=== PATIENT | male | born 1955 | race Caucasian/White ===

== ENCOUNTER 2017-03-20 08:36 | Day surgery (SDC) | payer BC, SELFPAY ==
[2017-03-20] MEDS ORDERED: Sodium Chloride 0.9% 10 ML Syringe FLUSH PRN (08:45)
[2017-03-20] MEDS ORDERED: Lactated Ringers 1,000 ML IV SCH (10:05)
[2017-03-20] MEDS ORDERED: Lidocaine 1% 20 ML MDV INJECT ONE (10:30)
[2017-03-20] MEDS ORDERED: Propofol 200 MG/20 ML SDV IV ONE (10:30)
[2017-03-20 11:34] VITALS: BP 143/94
--- NOTE | 2017-03-20 19:20 | OR ---
DATE OF OPERATION: 03/20/2017 SURGEON: Yonatan Samson MD PREOPERATIVE DIAGNOSIS: Cataract, left eye. POSTOPERATIVE DIAGNOSIS: Cataract, left eye. OPERATION PERFORMED: Phacoemulsification of cataract left eye with placement of an Oseguera, model ZCB00, 20.0 diopter, foldable, posterior chamber intraocular lens. INSTANT PRINT OPERATOR: None. DESCRIPTION OF PROCEDURE: Peribulbar anesthetic was performed using a mixture of 2% lidocaine with Wydase. The patient was prepped and draped in the usual fashion. A 3 mm fornix based conjunctival flap was performed at the 10 o'clock position. Hemostasis was obtained using diathermy, and a 2.8 mm grooved near clear corneal incision was then made. A stab incision was made into the anterior chamber at the 12 o'clock position and a second stab wound incision was made underlying the grooved near clear corneal incision. Viscoat was instilled into the anterior chamber, and a continuous tear capsulotomy was performed. Hydrodissection was accomplished with balanced salt solution, and the nucleus was removed in a divide and conquer fashion. The remaining cortical material was removed with the irrigation and aspiration unit. Viscoat was instilled into the anterior chamber, and an Oseguera, model ZCB00, 20.0 diopter, foldable, posterior chamber intraocular lens was placed into the capsular bag, the haptics being positioned at the 1 and 7 o'clock positions. The residual Viscoat was removed from the anterior chamber and the anterior chamber reformed with balanced salt solution. The wound was checked and noted to be watertight. The conjunctiva was secured in its original position with diathermy. Alphagan and Maxitrol Ointment were then placed into the patient's eye. The patient tolerated the procedure well and it was without complication. Elapsed phacoemulsification time was 19 seconds. Postoperative instructions as related to activities as well as medications were reviewed with the patient. The patient was instructed to return to see me on the day following surgery for the first postoperative check. The patient was also instructed to contact me prior to that time if the patient were to have any problems. /[id number] DEG/MODL CC: BARRETT PACHECO PA-C MTDD
== END 2017-03-20 12:15 | disposition home or self-care (01) ==
LOC: FB.SDS 08:36
PROVIDERS: ATTEND Ophthalmology
DX: H26.9 Unspecified cataract (principal); I10 Essential (primary) hypertension; E03.9 Hypothyroidism, unspecified; Z79.82 Long term (current) use of aspirin; Z79.899 Other long term (current) drug therapy; Z88.8 Allergy status to other drugs, medicaments and biological substances; Z98.890 Other specified postprocedural states
CPT/HCPCS: 66984; A4217; C1780; J2704; J7120

== ENCOUNTER 2019-02-03 06:43 | Day surgery (SDC) | payer MEDICARE, OTHER ==
[2019-02-03] MEDS ORDERED: Lidocaine 1% PF 2 ML SDV INJECT ONE (06:44)
[2019-02-03] MEDS ORDERED: Propofol 200 MG/20 ML SDV IV ONE (06:44)
[2019-02-03] MEDS ORDERED: Sodium Chloride 0.9% 10 ML Syringe FLUSH PRN (06:45)
[2019-02-03] MEDS ORDERED: Lactated Ringers 1,000 ML IV SCH (06:45)
--- NOTE | 2019-02-03 08:14 | PCM.OPNOTE ---
- General Post-Op/Procedure Note Date of Surgery/Procedure: 02/03/19 Operative Procedure(s): c scope with bx Findings: polyp ascending and transverse colon Pre Op Diagnosis: screening Post-Op Diagnosis: polyp ascending and transverse colon Anesthesia Technique: MAC Primary Surgeon: Jose Tovar Anesthesia Provider: Nicolas Lr Pathology: polyp ascending and transverse colon Complications: None Condition: Good Free Text/Narrative:: see dictation
[2019-02-03 10:19] VITALS: BP 110/75; PULSE 75
--- NOTE | 2019-02-03 12:40 | OR ---
DATE OF OPERATION: 02/03/2019 SURGEON: Jose Tovar MD PROCEDURE PERFORMED: Colonoscopy, cold forceps biopsy. PREOPERATIVE DIAGNOSIS: Need for screening C scope. POSTOPERATIVE DIAGNOSIS: Polyp, ascending and transverse colon. INDICATIONS FOR PROCEDURE: This is a 63-year-old white male who presents for a screening colonoscopy. He was offered and accepted same. DESCRIPTION OF OPERATION: After an excellent IV sedation was administered, digital rectal exam was performed. The patient was noted to have a grade 4 hemorrhoid that was irritated by the bowel prep. The colonoscope was inserted and advanced to the cecum. The prep was excellent. The following findings were noted. Ascending colon, a small red patch consistent with an early adenoma, biopsied and sent for permanent. Transverse colon, small hyperplastic appearing polyps, biopsied and sent for permanent. Descending colon, unremarkable. Sigmoid, unremarkable. Rectum, unremarkable. Colon was deflated. Scope was removed. Results by letter. /[id number] /MONA
== END 2019-02-03 08:59 | disposition home or self-care (01) ==
LOC: FB.SDS 06:43
PROVIDERS: ATTEND Surgery
DX: Z12.11 Encounter for screening for malignant neoplasm of colon (principal); D12.3 Benign neoplasm of transverse colon; K64.3 Fourth degree hemorrhoids; K63.89 Other specified diseases of intestine; I10 Essential (primary) hypertension; E03.9 Hypothyroidism, unspecified; Z88.8 Allergy status to other drugs, medicaments and biological substances; Z79.82 Long term (current) use of aspirin; Z79.899 Other long term (current) drug therapy
CPT/HCPCS: 00812; 45380; J2001; J2704; J7120; 88305

== ENCOUNTER 2020-11-07 11:35 | Emergency (ER) | payer MEDICARE, OTHER ==
[2020-11-07] MEDS ORDERED: methylPREDNISolone Sodium Succinate 125 MG/2 ML SDV IM ONE (12:16)
[2020-11-07] MEDS ORDERED: Gabapentin 100 MG Cap PO ONE (12:17)
[2020-11-07] MEDS ORDERED: Ketorolac 60 MG/2 ML SDV IM ONE (12:20)
--- NOTE | 2020-11-07 13:09 | EDM.PDOC ---
ED HPI GENERAL MEDICAL PROBLEM - General Stated Complaint: LEFT SIDED JAW/TOOTH PAIN Time Seen by Provider: 11/07/20 11:40 Source of Information: Reports: Patient History Limitations: Reports: No Limitations - History of Present Illness INITIAL COMMENTS - FREE TEXT/NARRATIVE: c/o L face pain pt with L trigeminal neuralgia x 3y, was seen last week by Dr Moseley who put him on carbamazepine 200 mg 1 tab tid which he has been taken, pt says the pain on the outside is gone, still gets sharp pain on the inside which lasts for a few seconds went to urgent care who sent him here for IM meds pt given Solu-Medrol 125 mg IM, Toradol 60 mg IM and gabapentin 100 mg PO pt with mild sedation on carbamazepine but tolerating it well has an apt in [place] in a few days for injection of his R shoulder has had imaging in the past when the went to the ED in [place] and was given IV morphine which he says did not help he has had 3-4 flares in the past, will spontaneously subside in a few days inc'd pain at 5a today, "worst that it has been" no other sxs beside pain Left Face/Facial Pain Score (Numeric/FACES): 9 - Related Data Allergies Allergy/AdvReac Type Severity Reaction Status Date / Time lisinopril AdvReac Cough Verified 11/07/20 11:55 Home Meds: Home Meds Aspirin 325 mg PO DAILY 03/19/17 [History] Levothyroxine 150 mcg PO ACBREAKFAST 03/19/17 [History] Valsartan/Hydrochlorothiazide [Valsartan-Hctz 320-12.5 mg Tab] 1 each PO DAILY 03/19/17 [History] Olmesartan/Hydrochlorothiazide [Benicar HCT 40-25 MG] 1 tab PO DAILY 01/30/19 [History] allopurinoL [Zyloprim] 300 mg PO DAILY 01/30/19 [History] amLODIPine [Norvasc] 10 mg PO DAILY 01/30/19 [History] Vit C/E/Zn/Coppr/Lutein/Zeaxan [Preservision Areds 2 Softgel] 2 cap PO DAILY 02/03/19 [History] Gabapentin [Neurontin] 100 mg PO TID #30 capsule 11/07/20 [Rx] predniSONE [Prednisone] 20 mg PO ASDIRECTED #7 tablet 11/07/20 [Rx] Past Medical History HEENT History: Reports: Cataract Cardiovascular History: Reports: Hypertension Respiratory History: Reports: None Gastrointestinal History: Reports: None Genitourinary History: Reports: Prostate Disorder FIELD SERVICE ENGINEER History: Reports: None Musculoskeletal History: Reports: Arthritis, Gout Other Musculoskeletal History: BONE GROWN ON NECK A CHILD Neurological History: Reports: None Psychiatric History: Reports: None Endocrine/Metabolic History: Reports: Hypothyroidism, Other (See Below) Hematologic History: Reports: None Immunologic History: Reports: None Oncologic (Cancer) History: Reports: None Dermatologic History: Reports: None - Infectious Disease History Infectious Disease History: Reports: Chicken Pox, Measles, Mumps - Past Surgical History Head Surgeries/Procedures: Reports: None HEENT Surgical History: Reports: Oral Surgery, Other (See Below) Other HEENT Surgeries/Procedures: 1/2 THYROID REMOVED Endocrine Surgical History: Reports: Thyroidectomy Musculoskeletal Surgical History: Reports: Other (See Below) Other Musculoskeletal Surgeries/Procedures:: STATES HAD BONE GROWTH ON NECK A CHILD REMOVED. Social & Family History - Family History Family Medical History: No Pertinent Family History - Caffeine Use Caffeine Use: Reports: Soda ED ROS ENT - Review of Systems Review Of Systems: See Below Constitutional: Reports: No Symptoms HEENT: Reports: No Symptoms Respiratory: Reports: No Symptoms Endocrine: Reports: No Symptoms GI/Abdominal: Reports: No Symptoms : Reports: No Symptoms Musculoskeletal: Reports: No Symptoms Skin: Reports: No Symptoms Neurological: Reports: Other (L face pain) Psychiatric: Reports: No Symptoms Hematologic/Lymphatic: Reports: No Symptoms Immunologic: Reports: No Symptoms ED EXAM, ENT - Physical Exam Exam: See Below Exam Limited By: No Limitations General Appearance: Alert, WD/WN, No Apparent Distress Ears: Hearing Grossly Normal Nose: Normal Inspection, Normal Mucousa, No Blood Mouth/Throat: Normal Oropharynx (pain triggered with talking and palpating the L buccal mucosa), Other (pt with sharp pain triggered with palpation of the L mid cheek in one spot only, no subc swell, skin intact, there is prominence of the buccal mucosa on the L side inside the cheek perhaps a little more than the L but quite soft and no induration and no palpable mass or cyst) Head: Atraumatic, Normocephalic Course - Vital Signs Last Recorded V/S: Last Vital Signs Temp 36.7 C 11/07/20 11:35 Pulse 75 11/07/20 11:35 Resp 18 11/07/20 11:35 BP 156/98 H 11/07/20 11:35 Pulse Ox 98 11/07/20 11:35 - Orders/Labs/Meds Meds: Medications Discontinued Medications Generic Name Dose Route Start Last Admin Trade Name Sury PRN Reason Stop Dose Admin Gabapentin 100 mg 11/07/20 12:17 11/07/20 12:24 Gabapentin 100 Mg Cap PO 11/07/20 12:18 100 mg ONETIME ONE Administration Ketorolac Tromethamine 60 mg 11/07/20 12:20 11/07/20 12:27 Ketorolac 60 Mg/2 Ml Sdv IM 11/07/20 12:21 60 mg ONETIME ONE Administration Methylprednisolone Sodium Succinate 125 mg 11/07/20 12:16 11/07/20 12:27 Methylprednisolone Sodium Succinate 125 Mg/2 Ml Sdv IM 11/07/20 12:17 125 mg ONETIME ONE Administration - Re-Assessments/Exams Free Text/Narrative Re-Assessment/Exam: 11/07/20 13:11 pt with trigeminal neuralgia by hx and PE partial response to carbamazepine, will add prednisone with gabapentin for now with additional adjustment in meds as per Dr Moseley, pt understands he needs close f/u with Dr Moseley Departure - Departure Time of Disposition: 13:01 Disposition: Home, Self-Care 01 Condition: Good Clinical Impression: Trigeminal neuralgia of left side of face - Discharge Information *PRESCRIPTION DRUG MONITORING PROGRAM REVIEWED*: No *COPY OF PRESCRIPTION DRUG MONITORING REPORT IN PATIENT KARLEE: No Prescriptions: Gabapentin [Neurontin] 100 mg PO TID #30 capsule predniSONE [Prednisone] 20 mg PO ASDIRECTED #7 tablet Instructions: Trigeminal Neuralgia Additional Instructions: Continue the carbamazepine 200 mg 1 tab 3 times a day as prescribed by Dr Moseley. In addition, take gabapentin 100 mg 1 tab 3 times a day. To decrease swelling, take prednisone 20 mg 2 tab daily for 2 days, then 1 tab daily for 3 days. Use ice (or heat) for 10 minutes several times a day. See Dr Moseley in 3-4 days for further evaluation and additional recommendations. Return to Emergency Department if you develop additional symptoms or have pain that is not controlled at home. Sepsis Event Note (ED) - Evaluation Sepsis Screening Result: No Definite Risk - Focused Exam Vital Signs: Vital Signs Temp Pulse Resp BP Pulse Ox 11/07/20 11:35 36.7 C 75 18 156/98 H 98
[2020-11-07 13:36] VITALS: BP 152/90; PULSE 65
== END 2020-11-07 13:25 | disposition home or self-care (01) ==
LOC: FB.ED 11:35
DX: G50.0 Trigeminal neuralgia (principal); I10 Essential (primary) hypertension; M10.9 Gout, unspecified; E03.9 Hypothyroidism, unspecified; Z79.899 Other long term (current) drug therapy; Z88.8 Allergy status to other drugs, medicaments and biological substances; Z79.82 Long term (current) use of aspirin
CPT/HCPCS: 96372; 99283; A9270-GY; J1885; J2930

== ENCOUNTER 2022-04-04 08:32 | Day surgery (SDC) | payer MEDICARE, OTHER ==
[2022-04-04] MEDS ORDERED: Midazolam 1 MG/ML 2 ML SDV IV ONE (08:33)
[2022-04-04] MEDS ORDERED: fentaNYL 100 MCG/2 ML SDV IV ONE (08:33)
[2022-04-04] MEDS ORDERED: Labetalol 100 MG/20 ML MDV IV ONE (08:33)
[2022-04-04] MEDS ORDERED: hydrALAZINE 20 MG/ML SDV IV ONE (08:33)
[2022-04-04] MEDS ORDERED: Sodium Chloride 0.9% 10 ML Syringe FLUSH PRN (09:00)
[2022-04-04] MEDS ORDERED: Lactated Ringers 1,000 ML IV PRN (09:00)
[2022-04-04] MEDS ORDERED: acetaZOLAMIDE 500 MG Cap.ER PO ONE (11:00)
[2022-04-04 15:47] VITALS: BP 125/66; PULSE 56
== END 2022-04-04 11:10 | disposition home or self-care (01) ==
LOC: FB.SDS 08:32
PROVIDERS: ATTEND Ophthalmology
DX: H25.811 Combined forms of age-related cataract, right eye (principal); I10 Essential (primary) hypertension; R73.03 Prediabetes; E66.9 Obesity, unspecified; H35.3222 Exudative age-related macular degeneration, left eye, with inactive choroidal neovascularization; H35.3112 Nonexudative age-related macular degeneration, right eye, intermediate dry stage; E03.9 Hypothyroidism, unspecified; Z98.890 Other specified postprocedural states; Z68.41 Body mass index [BMI] 40.0-44.9, adult; Z79.899 Other long term (current) drug therapy
CPT/HCPCS: 00142; 66984; A9270; J0360; J2250; J3010; J3490; J7120; V2632